=== PATIENT | female | born 1990 | race Caucasian/White ===

== ENCOUNTER → 2023-05-17 13:17 | Outpatient (CLI) | payer MEDICAID, SELFPAY ==
[2023-05-18 20:07] LABS: Deamidated Gliadin Abs, IgA 7 units (0-19); Deamidated Gliadin Abs, IgG 2 units (0-19); Endomysial IgA Antibody Negative (Negative); Tissue Transglutaminase IgA Ab <2 U/mL (0-3); Tissue Transglutaminase IgG Ab <2 U/mL (0-5)
[2023-05-20 10:39] LABS: F004-IgE Wheat <0.10 kU/L (Class 0); Immunoglobulin E, Total 70 IU/mL (6-495); Reticulin IgA Antibody Negative titer (Neg:<1:2.5)
== END ==
PROVIDERS: Visit Provider Allergy & Immunology
DX: Z91.018 Allergy to other foods (principal); T78.40XA Allergy, unspecified, initial encounter
CPT/HCPCS: 36415; 82785; 83516; 86003; 86255; 86256